=== PATIENT | male | born 1950 | race Caucasian/White ===

== ENCOUNTER 2024-06-02 22:34 | Emergency (ER) | payer MEDICARE, BC ==
[~2024-06-02] VITALS: Ht 170.2 cm; Wt 73.0 kg
[2024-06-02 22:42] VITALS: O2SAT 96
[2024-06-02] MEDS: SODIUM CHLORIDE 0.9% 1,000 ML IV ONE (22:59)
[2024-06-02 23:01] LABS: DIFFERENTIAL COMMENT 1; HEMATOCRIT. 39.6 % (42.0-52.0); HEMOGLOBIN. 13.9 g/dL (14.0-18.0); MEAN CORPUSCULAR HEMOGLOBIN 31.7 pg (28.0-32.0); MEAN CORPUSCULAR HGB CONC 35.2 g/dL (31.0-37.0); MEAN CORPUSCULAR VOLUME 90.2 fL (80.0-94.0); MEAN PLATELET VOLUME 9.4 fl (7.4-10.4); PLATELET 150 x1000/uL (130-400); RED CELL DISTRIBUTION WIDTH 13.5 % (11.6-14.6); WHITE BLOOD COUNT 5.7 x1000/uL (4.5-11.0)
[2024-06-02 23:07] LABS: CHLORIDE 104 mEq/L (98-107); POTASSIUM 3.9 mEq/L (3.5-5.1); SODIUM 137 mEq/L (136-145)
[2024-06-02 23:08] LABS: CALCIUM 9.2 mg/dL (8.7-10.4); CARBON DIOXIDE 24 mEq/L (21-32)
[2024-06-02 23:13] LABS: CREATININE 1.2 mg/dL (0.6-1.3); GLUCOSE 121 mg/dL (70-105); UREA NITROGEN BLOOD 15 mg/dL (9-23)
[2024-06-02 23:15] LABS: ALANINE AMINOTRANSFERASE 33 IU/L (10-49); ALBUMIN 4.6 g/dL (3.2-4.8); ASPARTATE AMINOTRANSFERASE 35 IU/L (<34)
[2024-06-02 23:16] LABS: BILIRUBIN DIRECT 0.6 mg/dL (<=3.0)
[2024-06-02 23:31] LABS: PLATELET ESTIMATE NORMAL
[2024-06-03 00:18] VITALS: BP 122/67; PULSE 65; RESP 18; TEMP 37.00296; O2SAT 98
== END 2024-06-03 00:20 | disposition home or self-care (01) ==
LOC: ER 22:34
DX: B34.9 Viral infection, unspecified (principal); I10 Essential (primary) hypertension; Z20.822 Contact with and (suspected) exposure to COVID-19
CPT/HCPCS: 99284; 96360; 71045; 87426; 80076; 80048; 83605; 85025; 87804 ×2; 36415; J7030

== ENCOUNTER → 2024-12-09 | Outpatient (CLI) | payer MEDICARE, BC ==
[~2024-12-09] MED LIST: LIDOCAINE HCL 1% 10 MG/ML 10ML VIAL ONE; SODIUM BICARBONATE 4% 2.4MEQ/5ML VIAL IV ONE
== END | disposition home or self-care (01) ==
LOC: US 12:44
PROVIDERS: ATTEND Radiology Diagnostic Radiology
DX: M25.461 Effusion, right knee (principal); Z79.899 Other long term (current) drug therapy
CPT/HCPCS: 20611; J2003; J3490